=== PATIENT | male | born 1960 | race Caucasian/White ===

== ENCOUNTER 2017-02-03 19:30 | Emergency (ER) | payer OTHER ==
--- NOTE | 2017-02-03 19:40 | EDM.PDOC ---
ED HPI GENERAL MEDICAL PROBLEM - General Chief Complaint: Lower Extremity Injury/Pain Stated Complaint: RIGHT FOOT PAIN Time Seen by Provider: 02/03/17 19:38 Source of Information: Reports: Patient History Limitations: Reports: No Limitations - History of Present Illness INITIAL COMMENTS - FREE TEXT/NARRATIVE: HISTORY AND PHYSICAL: []56-year-old male presents with injury to his right foot History of Present Illness: []Patient was walking on uneven gravel otherwise twisted his ankle and foot causing increased pain. When patient got home after work he took his work boot off pain increased and bruising is starting to be present on the lateral surface Review of Systems: As per history of present illness and below otherwise all systems reviewed and negative. Past medical history: As per history of present illness and as reviewed below otherwise noncontributory. Surgical history: As per history of present illness and as reviewed below otherwise noncontributory. Social history: No reported history of drug or alcohol abuse. Family history: As per history of present illness and as reviewed below otherwise noncontributory. Physical exam: Alert and oriented gentleman who answers questions appropriately, in full sentences, good affect. HEENT: Atraumatic, normocehpalic, pupils reactive, negative for conjunctival pallor or scleral icterus, mucous membranes moist, throat clear, neck supple, nontender, trachea midline. Lungs: Clear to auscultation, breath sounds equal bilaterally, chest non tender. Heart: S1S2, regular, negative for clicks, rubs, or JVD. Abdomen: Soft, nondistended, nontender. Negative for masses or hepatossplenmegaly. Negative for costovertebral tenderness. Pelvis: Stable nontender. Genitourinary: Deferred. Rectal: Deferred Extremities: Right foot with erythema and lateral edema, right ankle with edema laterally, negative for cords or calf pain. Neurovascular unremarkable. Neuro: Awake, alert, oriented. Cranial nerves II through XII unremarkable. Cerebellum unremarkable. Motor and sensory unremarkable throughout. Exam nonfocal. Diagnostics: [X-ray right foot x-ray right ankle] Therapeutics: []Ice Impression: [Sprain right foot and ankle] Plan: []Home elevate and ice Note for work light duty 2 days Definitive disposition and diagnosis as appropriate pending reevaluation and review of above. right foot Pain Score (Numeric/FACES): 8 - Related Data Allergies Allergy/AdvReac Type Severity Reaction Status Date / Time No Known Allergies Allergy Verified 02/03/17 19:36 Home Meds: Home Meds metFORMIN HCl [Metformin HCl ER] 500 mg PO DAILY 12/22/13 [History] Dulaglutide [Trulicity] 1.5 mg SQ WEEKLY 02/03/17 [History] FLUoxetine [PROzac] 20 mg PO DAILY 02/03/17 [History] Social & Family History - Tobacco Use Years of Tobacco use: 38 Used Tobacco, but Quit: No Second Hand Smoke Exposure: No - Alcohol Use Days Per Week of Alcohol Use: 0 - Recreational Drug Use Recreational Drug Use: No Review of Systems - Review of Systems Review Of Systems: ROS reveals no pertinent complaints other than HPI. ED EXAM, GENERAL - Physical Exam Exam: See Below (see dictation) Course - Vital Signs Last Recorded V/S: Last Vital Signs Temp 36.6 C 02/03/17 19:40 Pulse 126 H 02/03/17 19:40 Resp 18 02/03/17 19:40 BP 131/90 02/03/17 19:40 Pulse Ox 96 02/03/17 19:40 - Orders/Labs/Meds Orders: Active Orders 24 hr Category Date Time Status Cooling Warming Measures [RC] ASDIRECTED Care 02/03/17 19:43 Active Splinting [RC] ASDIRECTED Care 02/03/17 20:32 Ordered Ankle Min 3V Rt [CR] Stat Exams 02/03/17 19:40 Taken Foot 2V Rt [CR] Stat Exams 02/03/17 19:40 Taken Ice Bag [Ice Therapy] [OM.PC] Stat Oth 02/03/17 19:43 Ordered Departure - Departure Time of Disposition: 20:34 Disposition: Home, Self-Care 01 Condition: Good Clinical Impression: Strain of ankle and foot Qualifiers: Encounter type: initial encounter Laterality: right Qualified Code(s): S96.911A - Strain of unspecified muscle and tendon at ankle and foot level, right foot, initial encounter - Discharge Information Instructions: Ankle Sprain, [id number] Forms: ED Department Discharge Additional Instructions: The following information is given to patients seen in the emergency department who are being discharged to home. This information is to outline your options for follow-up care. We provide all patients seen in our emergency department with a follow-up referral. The need for follow-up, as well as the timing and circumstances, are variable depending upon the specifics of your emergency department visit. If you don't have a primary care physician on staff, we will provide you with a referral. We always advise you to contact your personal physician following an emergency department visit to inform them of the circumstance of the visit and for follow-up with them and/or the need for any referrals to a consulting specialist. The emergency department will also refer you to a specialist when appropriate. This referral assures that you have the opportunity for followup care with a specialist. All of these measure are taken in an effort to provide you with optimal care, which includes your followup. Under all circumstances we always encourage you to contact your private physician who remains a resource for coordinating your care. When calling for followup care, please make the office aware that this follow-up is from your recent emergency room visit. If for any reason you are refused follow-up, please contact the [facility] emergency department at and asked to speak to the emergency department charge nurse. [id number] anti-inflammatory such as Aleve twice daily may alternate with Tylenol Elevate and ice currently Fran wrap to this ankle Light Duty note written for 2 days of work Follow-up with your primary care provider next week - My Orders Last 24 Hours: My Active Orders 02/03/17 19:40 Ankle Min 3V Rt [CR] Stat Foot 2V Rt [CR] Stat 02/03/17 19:43 Cooling Warming Measures [RC] ASDIRECTED Ice Bag [Ice Therapy] [OM.PC] Stat 02/03/17 20:32 Splinting [RC] ASDIRECTED - Assessment/Plan Last 24 Hours: My Active Orders 02/03/17 19:40 Ankle Min 3V Rt [CR] Stat Foot 2V Rt [CR] Stat 02/03/17 19:43 Cooling Warming Measures [RC] ASDIRECTED Ice Bag [Ice Therapy] [OM.PC] Stat 02/03/17 20:32 Splinting [RC] ASDIRECTED
[2017-02-03 21:32] VITALS: BP 118/83
--- NOTE | 2017-02-04 11:54 | CR ---
EXAM DATE: 02/03/17 PATIENT'S AGE: 56 Patient: KATJA ALEJANDRO Facility: [place], [place] Site . Site : 1960 Study: XRay Extremity foot [id number]/15/2017 8:03:24 PM Ordering Physician: Doctor Gallardo Final Report: INDICATION: Twisting injury, right foot. TECHNIQUE: Right foot, 2 images only. COMPARISON: None FINDINGS: Bones: Alignment is normal. No acute fractures or aggressive osseous lesions seen. Joint spaces: The visualized hindfoot, midfoot, and forefoot joints are unremarkable in appearance. Soft tissues: Unremarkable. No radiopaque foreign bodies are noted. IMPRESSION: 1. No acute osseous injuries are identified. Dictated by Narinder Cantu MD @ 02/03/2017 8:18:14 PM Dictated by: Narinder Cantu MD @ 02/03/2017 20:18:30 (Electronic Signature) Report Signed by Proxy. WILLIAMS
--- NOTE | 2017-02-04 11:55 | CR ---
EXAM DATE: 02/03/17 PATIENT'S AGE: 56 Patient: KATJA ALEJANDRO Facility: [place], [place] Site . Site : 1960 Study: XRay Extremity ankle [id number]/15/2017 8:03:47 PM Ordering Physician: Doctor Gallardo Final Report: INDICATION: Twisting injury, right ankle. TECHNIQUE: Ankle radiograph 3 views COMPARISON: None FINDINGS: Bones: Alignment is normal. No acute fractures or aggressive osseous lesions seen. Joint spaces: The visualized tibiotalar, subtalar, and midfoot joints are unremarkable in appearance. No joint effusion is seen. Soft tissues: Kager`s fat pad is normal in appearance. The Achilles` tendon is normal in appearance. No radiopaque foreign bodies are noted. IMPRESSION: 1. No acute osseous injuries are identified. Dictated by Narinder Cantu MD @ 02/03/2017 8:20:15 PM Dictated by: Narinder Cantu MD @ 02/03/2017 20:20:21 (Electronic Signature) Report Signed by Proxy. [facility] HE[facility] SYSTEMSukhi
== END 2017-02-03 20:45 | disposition home or self-care (01) ==
LOC: MW.ED 19:30
DX: S96.911A Strain of unspecified muscle and tendon at ankle and foot level, right foot, initial encounter (principal); S93.401A Sprain of unspecified ligament of right ankle, initial encounter; Z79.899 Other long term (current) drug therapy; X50.1XXA Overexertion from prolonged static or awkward postures, initial encounter; Y93.01 Activity, walking, marching and hiking
CPT/HCPCS: 73610-26-RT; 73610-RT; 73620-26-RT; 73620-RT; 99282; 99283

== ENCOUNTER 2017-12-21 06:31 | Day surgery (SDC) | payer OTHER ==
[~2017-12-21 06:31] MED LIST: Lactated Ringers 1,000 ML IV SCH
--- NOTE | 2017-12-21 07:13 | PCM.PREANE ---
Preanesthetic Assessment - Anesthesia/Transfusion/Family Hx Anesthesia History: Prior Anesthesia Without Reaction Family History of Anesthesia Reaction: No Transfusion History: No Prior Transfusion(s) Intubation History: Unknown - Review of Systems General: No Symptoms Pulmonary: No Symptoms Cardiovascular: No Symptoms Gastrointestinal: No Symptoms Neurological: No Symptoms Other: Reports: None - Physical Assessment O2 Sat by Pulse Oximetry: 94 Respiratory Rate: 16 Vital Signs: Last Vital Signs Temp 36.4 C 12/21/17 07:09 Pulse 85 12/21/17 07:09 Resp 16 12/21/17 07:09 BP 142/87 H 12/21/17 07:09 Pulse Ox 94 L 12/21/17 07:09 Height: 1.73 m Weight: 95.254 kg ASA Class: 2 Mental Status: Alert & Oriented x3 Airway Class: Mallampati = 2 Dentition: Reports: Normal Dentition Thyro-Mental Finger Breadths: 2 Mouth Opening Finger Breadths: 3 ROM/Head Extension: Full Lungs: Clear to Auscultation, Normal Respiratory Effort Cardiovascular: Regular Rate, Regular Rhythm - Allergies Allergies/Adverse Reactions: Allergies Allergy/AdvReac Type Severity Reaction Status Date / Time No Known Allergies Allergy Verified 12/16/17 12:25 - Blood Blood Available: No - Anesthesia Plan Pre-Op Medication Ordered: None - Acknowledgements Anesthesia Type Planned: General Anesthesia Pt an Appropriate Candidate for the Planned Anesthesia: Yes Alternatives and Risks of Anesthesia Discussed w Pt/Guardian: Yes Pt/Guardian Understands and Agrees with Anesthesia Plan: Yes PreAnesthesia Questionnaire HEENT History: Reports: None, Other (See Below) Other HEENT History: wears glasses Cardiovascular History: Reports: High Cholesterol Respiratory History: Reports: None Gastrointestinal History: Reports: None Genitourinary History: Reports: None Musculoskeletal History: Reports: Fracture Other Musculoskeletal History: hx fx rt ankle Neurological History: Reports: None Psychiatric History: Reports: Anxiety, Depression Endocrine/Metabolic History: Reports: Diabetes, Type II (diagnosed 3 years ago) , Obesity/BMI 30+ Hematologic History: Reports: None Dermatologic History: Reports: None - Infectious Disease History Infectious Disease History: Reports: Chicken Pox, Mumps - Past Surgical History Head Surgeries/Procedures: Reports: None Other GI Surgeries/Procedures: hemorrhoidectomy Male Surgical History: Reports: None - SUBSTANCE USE Smoking Status *Q: Former Smoker Recreational Drug Use History: No - HOME MEDS Home Medications: Home Meds metFORMIN HCl [Metformin HCl ER] 1,000 mg PO BID 12/22/13 [History] Creatinine 5 gm PO DAILY 12/16/17 [History] Multivitamin [Multivitamins] 1 tab PO DAILY 12/16/17 [History] [place]-3/DHA/Epa/Fish Oil [Fish Oil 500 MG Softgel] 1 tab PO DAILY 12/16/17 [ History] Saxagliptin HCl [Onglyza] 5 mg PO DAILY 12/16/17 [History] Venlafaxine HCl [Venlafaxine HCl ER] 225 mg PO DAILY 12/16/17 [History] atorvaSTATin Calcium [Atorvastatin Calcium] 40 mg PO DAILY 12/16/17 [History] - CURRENT (IN HOUSE) MEDS Current Meds: Current Medications Hydrocodone Bitart/Acetaminophen (Rapidan 325-5 Mg) 1 - 2 tab PO Q4H PRN PRN Reason: Pain Cefazolin Sodium/Dextrose 2 gm (/ Premix) 50 mls @ 100 mls/hr IV ONCALL [facility] Lactated Ringer's (Ringers, Lactated) 1,000 mls @ 100 mls/hr IV ASDIRECTED [facility]
[2017-12-21] MEDS ORDERED: Midazolam 1 MG/ML 2 ML SDV ONE (07:22)
[2017-12-21] MEDS ORDERED: Propofol 200 MG/20 ML SDV ONE (07:22)
[2017-12-21] MEDS ORDERED: Lidocaine 2% 5 ML SDV ONE (07:22)
[2017-12-21] MEDS ORDERED: fentaNYL 250 MCG/5 ML SDV ONE (07:23)
[2017-12-21] MEDS ORDERED: ceFAZolin/Dextrose,Iso-Osmotic 2 GM/50 ML Duplex Bag IV ONE (07:29)
[2017-12-21] MEDS ORDERED: Lidocaine 1% 20 ML MDV ONE (07:34)
[2017-12-21] MEDS ORDERED: Acetaminophen/HYDROcodone 325-5 MG Tab PO PRN (08:00)
[2017-12-21] MEDS ORDERED: ceFAZolin 2 GM in Premix Bag 1 BAG IV SCH (08:00)
--- NOTE | 2017-12-21 08:46 | PCM.OPNOTE ---
- General Post-Op/Procedure Note Date of Surgery/Procedure: 12/21/17 Operative Procedure(s): L knee arthroscopy with PMM Post-Op Diagnosis: L knee DJD, left knee medial meniscus tear Anesthesia Technique: General LMA Primary Surgeon: Ewelina Velez Labourers: Tonie Clark in mLs: 5 Condition: Good Free Text/Narrative:: tt=14 min #[id number]
[2017-12-21] MEDS ORDERED: fentaNYL 100 MCG/2 ML SDV IVPUSH PRN (08:57)
--- NOTE | 2017-12-21 09:16 | PCM.POSTAN ---
POST ANESTHESIA ASSESSMENT - MENTAL STATUS Mental Status: Alert - RESPIRATORY Respiratory Status: Respiratory Rate WNL - CARDIOVASCULAR CV Status: Pulse Rate WNL, Blood Pressure Stable - GASTROINTESTINAL GI Status: No Symptoms - PAIN Pain Score: 0 - POST OP HYDRATION Hydration Status: Adequate & Stable - OBSERVATIONS Free Text/Narrative:: no anesthesia problems
[2017-12-21 09:51] VITALS: BP 128/74
--- NOTE | 2017-12-21 12:56 | OR ---
SURGEON: Ewelina Velez MD DATE OF PROCEDURE: 12/21/2017 PREOPERATIVE DIAGNOSIS: Left knee medial meniscus tear. POSTOPERATIVE DIAGNOSES: 1. Left knee medial meniscus tear. 2. Degenerative joint disease, left knee. PROCEDURES: Left knee arthroscopy with partial medial meniscectomy. STEM SIZER: Tonie Clark PA-C. ANESTHESIA: General. ESTIMATED BLOOD LOSS: 5 mL. TOURNIQUET TIME: 14 minutes. COMPLICATIONS: None. DVT PROPHYLAXIS: Not indicated. IMPLANTS USED: None. BRIEF HISTORY: Haseeb is a 57-year-old male, who has had complaint of progressive left knee pain. He had failed conservative treatment. An MRI did show an undersurface tear of the medial meniscus. Due to his lack of response to conservative treatment, I did recommend surgical intervention. The risks and goals of procedure were discussed with the patient and were documented preoperatively. He agreed to proceed. DESCRIPTION OF PROCEDURE: The patient was properly identified and brought to the operating room. He was transferred from the OR cart and placed on the operating table in supine position. General anesthesia was administered. After adequate anesthesia was obtained, a well-padded tourniquet was applied to the left lower extremity. The left lower extremity was then prepped in standard fashion using ChloraPrep solution. It was then sterilely draped. A time-out was performed to ensure correct site and procedure. Preoperative antibiotics were given. The surgical site had been marked preoperatively. An Esmarch was used to exsanguinate the left lower extremity and the tourniquet was inflated to 250 mmHg. A lateral portal arthrotomy was established. Blunt trocar and cannula were introduced into the suprapatellar pouch. Camera, inflow, and outflow were assembled. The suprapatellar pouch showed no signs of synovitis. The patellofemoral joint was visualized. 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 The trochlea showed no significant degenerative findings. The patella appeared to track centrally. I then extended down the lateral medial gutter. No loose bodies were identified. I then entered the medial compartment. A medial portal arthrotomy was established. A blunt probe was inserted. The meniscus was probed. He was found to have degenerative fraying along the central portion of the meniscus. This was resected with a combination of biters and shaver. The meniscus was again probed and was found to be stable. No undersurface tearing was noted. The joint surfaces showed diffuse grade 2 chondromalacia only. I then entered the notch. Both ACL and PCL were visualized, probed, and found to be intact. I finally entered the lateral compartment. The lateral tibial plateau did show extensive grade 2 to grade 3 chondromalacia, which was diffuse. No discrete lesions were noted. The lateral femoral condyle showed grade 1 to grade 2 chondromalacia only. The lateral meniscus was extensively probed. He had minor degenerative fraying along the central portion, but overall the meniscus was intact and appeared stable. The instruments were then removed from the knee. The portal sites were closed with 3-0 nylon. 1% Lidocaine was injected along the portal tracts. Xeroform gauze was placed over the wound and a bulky dressing was applied. The tourniquet was then deflated. He was awakened from his anesthetic and transferred back to the operating room cart. He was brought to recovery room in stable condition. All needle and sponge counts were correct. COURTNEY / JERALD /[id number]
== END 2017-12-21 09:54 | disposition home or self-care (01) ==
LOC: MW.SDS 06:31
PROVIDERS: ATTEND Orthopaedic Surgery
DX: S83.242A Other tear of medial meniscus, current injury, left knee, initial encounter (principal); M17.12 Unilateral primary osteoarthritis, left knee; M94.262 Chondromalacia, left knee; E11.9 Type 2 diabetes mellitus without complications; E78.00 Pure hypercholesterolemia, unspecified; F41.9 Anxiety disorder, unspecified; F32.9 Major depressive disorder, single episode, unspecified; E66.9 Obesity, unspecified; Z68.31 Body mass index [BMI] 31.0-31.9, adult; Z87.891 Personal history of nicotine dependence; Z79.4 Long term (current) use of insulin; Z79.82 Long term (current) use of aspirin; Z79.899 Other long term (current) drug therapy; W00.9XXA Unspecified fall due to ice and snow, initial encounter
CPT/HCPCS: 29881; J0690; J2250; J3010; J7120; 88304; J2704

== ENCOUNTER 2018-07-02 00:23 | Emergency (ER) | payer OTHER ==
[2018-07-02] MEDS ORDERED: Acetaminophen/HYDROcodone 325-7.5 MG Tab PO ONE (00:46)
--- NOTE | 2018-07-02 00:52 | EDM.PDOC ---
ED HPI GENERAL MEDICAL PROBLEM - General Chief Complaint: Chest Pain Stated Complaint: FELL AT WORK A WEEK AGO, IN PAIN Time Seen by Provider: 07/02/18 00:35 - History of Present Illness INITIAL COMMENTS - FREE TEXT/NARRATIVE: HISTORY AND PHYSICAL: History of present illness: The patient is a 57-year-old male with no pre-existing cardiac or lung history who presents with bilateral chest wall pain after he fell onto a 4 left approximate one week ago while at work. Patient was not impaled but didn't follow across the metal forklift and initially had the wind knocked out of him but he did not pass out or blackout. He did not hit his face or legs but he did put out both wrists and he still complains of persistent left wrist discomfort. He says that he has never had any abdominal pain nausea or vomiting and he has only had pain across the anterior chest wall. He has no head neck or back pain and no posterior rib pain on either side. He says that he takes a deep breath it is very painful and he's been using ibuprofen [id number] but does not feel like it is helping him relax. He has not had much of an appetite but he has been hydrating. The patient says he quit smoking and was tobacco free for 3 years but just recently started about a month ago. The patient has no other upper extremity complaints other than the wrists. The patient doesn't feel lightheaded or dizzy Review of systems: As per history of present illness and below otherwise all systems reviewed and negative. Past medical history: As per history of present illness and as reviewed below otherwise noncontributory. Surgical history: As per history of present illness and as reviewed below otherwise noncontributory. Social history: No reported history of drug or alcohol abuse. Family history: As per history of present illness and as reviewed below otherwise noncontributory. Physical exam: General: Well-developed well-nourished man speaking clearly and easily in the ED seems somewhat anxious. His vital signs were noted by me HEENT: Atraumatic, normocephalic, negative for conjunctival pallor or scleral icterus, mucous membranes moist, throat clear, neck supple, nontender, trachea midline. Lungs: Clear to auscultation but there is good air exchange bilaterally but some splinting with very deep breaths, there is no wheezing or stridor, breath sounds equal bilaterally, chest tender to the anterior chest wall in the lower anterior ribs bilaterally but no posterior rib discomfort or sternum tenderness. There is no ecchymosis contusion or soft tissue swelling in this region and no crepitus on palpation. Heart: S1S2, regular rhythm and tachycardic rate on my evaluation but no overt murmurs Abdomen: Soft, nondistended, nontender. Bowel sounds are normoactive and on deep palpation in the left upper and right upper quadrant there is absolutely no tenderness. There is no hepatosplenomegaly and no CVA tenderness. Genitourinary: Deferred. Rectal: Deferred. Extremities: Atraumatic, full range of motion without defects or deficits the exception of the left wrist where there is some tenderness with palpation of the soft tissue but no bony deformities are appreciated and there is no ecchymosis erythema. Distally neurovascular is intact and there are no carpal or metacarpal defects deformities or tenderness and the fingers have full range of motion. The proximal forearm elbow humerus and shoulder on the left are intact without tenderness defects or deformity. Neurovascular unremarkable. Neuro: Awake, alert, oriented. Cranial nerves II through XII unremarkable. Cerebellum unremarkable. Motor and sensory unremarkable throughout. Exam nonfocal. Diagnostics: X-ray left wrist bilateral rib x-rays with chest CBC CMP Therapeutics: [place] incentive spirometer Patient is aware of testing results which include anterior nondisplaced rib fractures on the right side of 7 and eighth ribs. We will given incentive spirometer and I will admit him and no work for no heavy lifting for the next one week but have advised him to follow-up with his provider in the clinic for more restrictions. Advised [id number] ibuprofen as he has been taking and I will give a prescription for Percocet as needed Impression: Right nondisplaced rib fractures #7 and 8, subacute Definitive disposition and diagnosis as appropriate pending reevaluation and review of above. Chest Pain Score (Numeric/FACES): 8 - Related Data Allergies Allergy/AdvReac Type Severity Reaction Status Date / Time No Known Allergies Allergy Verified 07/02/18 00:39 Home Meds: Home Meds metFORMIN HCl [Metformin ER Osmotic] 1,000 mg PO BID 12/22/13 [History] Multivitamin [Multivitamins] 1 tab PO DAILY 12/16/17 [History] Saxagliptin HCl [Onglyza] 5 mg PO DAILY 12/16/17 [History] atorvaSTATin Calcium [Atorvastatin Calcium] 40 mg PO DAILY 12/16/17 [History] Past Medical History HEENT History: Reports: None, Other (See Below) Other HEENT History: wears glasses Cardiovascular History: Reports: High Cholesterol Respiratory History: Reports: None Gastrointestinal History: Reports: None Genitourinary History: Reports: None Musculoskeletal History: Reports: Fracture Other Musculoskeletal History: hx fx rt ankle Neurological History: Reports: None Psychiatric History: Reports: Anxiety, Depression Endocrine/Metabolic History: Reports: Diabetes, Type II, Obesity/BMI 30+ Hematologic History: Reports: None Dermatologic History: Reports: None - Infectious Disease History Infectious Disease History: Reports: Chicken Pox, Mumps - Past Surgical History Head Surgeries/Procedures: Reports: None GI Surgical History: Reports: Other (See Below) Other GI Surgeries/Procedures: hemorrhoidectomy Male Surgical History: Reports: None Social & Family History - Family History Family Medical History: Noncontributory - Tobacco Use Smoking Status *Q: Current Every Day Smoker Years of Tobacco use: 42 Packs/Tins Daily: 1 - Caffeine Use Caffeine Use: Reports: Coffee - Recreational Drug Use Recreational Drug Use: No ED ROS GENERAL - Review of Systems Review Of Systems: ROS reveals no pertinent complaints other than HPI. ED EXAM, GENERAL - Physical Exam Exam: See Below (see dictation) Course - Vital Signs Last Recorded V/S: Last Vital Signs Temp 36.5 C 07/02/18 00:36 Pulse 128 H 07/02/18 00:36 Resp 20 07/02/18 00:36 BP 130/83 07/02/18 00:36 Pulse Ox 97 07/02/18 00:36 - Orders/Labs/Meds Orders: Active Orders 24 hr Category Date Time Status Communication Order [RC] STAT Care 07/02/18 02:21 Ordered Ribs 2V w Chest Rt [CR] Stat Exams 07/02/18 00:45 Taken Ribs 2V wo Chest Lt [CR] Stat Exams 07/02/18 00:45 Taken Wrist Comp Min 3V Lt [CR] Stat Exams 07/02/18 00:45 Taken Labs: Laboratory Tests 07/02/18 07/02/18 Range/Units 01:06 01:06 WBC 12.15 H (4.0-11.0) K/uL RBC 5.27 (4.50-5.90) M/uL Hgb 16.0 (13.0-17.0) g/dL Hct 46.6 (38.0-50.0) % MCV 88.4 (80.0-98.0) fL MCH 30.4 (27.0-32.0) pg MCHC 34.3 (31.0-37.0) g/dL RDW Std Deviation 41.0 (28.0-62.0) fl RDW Coeff of Yari 13 (11.0-15.0) % Plt Count 298 (150-400) K/uL MPV 10.00 (7.40-12.00) fL Neut % (Auto) 65.1 (48.0-80.0) % Lymph % (Auto) 16.5 (16.0-40.0) % [place] % (Auto) 11.0 (0.0-15.0) % Eos % (Auto) 7.2 H (0.0-7.0) % Baso % (Auto) 0.2 (0.0-1.5) % Neut # (Auto) 7.9 H (1.4-5.7) K/uL Lymph # (Auto) 2.0 (0.6-2.4) K/uL [place] # (Auto) 1.3 H (0.0-0.8) K/uL Eos # (Auto) 0.9 H (0.0-0.7) K/uL Baso # (Auto) 0.0 (0.0-0.1) K/uL Nucleated RBC % 0.0 /100WBC Nucleated RBCs # 0 K/uL Sodium 140 (136-148) mmol/L Potassium 4.0 (3.5-5.1) mmol/L Chloride 103 (98-107) mmol/L Carbon Dioxide 24.3 (21.0-32.0) mmol/L BUN 15 (7.0-18.0) mg/dL Creatinine 0.9 (0.8-1.3) mg/dL Est Cr Clr Drug Dosing 87.61 mL/min Estimated GFR (MDRD) > 60.0 ml/min Glucose 225 H (74-106) mg/dL Calcium 10.2 H (8.5-10.1) mg/dL Total Bilirubin 1.1 H (0.2-1.0) mg/dL AST 30 (15-37) IU/L ALT 60 (14-63) IU/L Alkaline Phosphatase 82 (46-116) U/L Total Protein 8.2 (6.4-8.2) g/dL Albumin 3.9 (3.4-5.0) g/dL Globulin 4.3 H (2.6-4.0) g/dL Albumin/Globulin Ratio 0.9 (0.9-1.6) Meds: Medications Discontinued Medications Generic Name Dose Route Start Last Admin Trade Name Freq PRN Reason Stop Dose Admin Hydrocodone Bitart/Acetaminophen 1 tab 07/02/18 00:46 07/02/18 00:51 [place] 325-7.5 Mg PO 07/02/18 00:47 1 tab ONETIME ONE Administration Departure - Departure Time of Disposition: 02:23 Disposition: Home, Self-Care 01 Condition: Good Clinical Impression: Ribs, multiple fractures Qualifiers: Encounter type: initial encounter Fracture type: closed Laterality: right Qualified Code(s): S22.41XA - Multiple fractures of ribs, right side, initial encounter for closed fracture - Discharge Information Referrals: Negrito Jordan MD [Primary Care Provider] - Forms: ED Department Discharge Additional Instructions: The following information is given to patients seen in the emergency department who are being discharged to home. This information is to outline your options for follow-up care. We provide all patients seen in our emergency department with a follow-up referral. The need for follow-up, as well as the timing and circumstances, are variable depending upon the specifics of your emergency department visit. If you don't have a primary care physician on staff, we will provide you with a referral. We always advise you to contact your personal physician following an emergency department visit to inform them of the circumstance of the visit and for follow-up with them and/or the need for any referrals to a consulting specialist. The emergency department will also refer you to a specialist when appropriate. This referral assures that you have the opportunity for followup care with a specialist. All of these measure are taken in an effort to provide you with optimal care, which includes your followup. Under all circumstances we always encourage you to contact your private physician who remains a resource for coordinating your care. When calling for followup care, please make the office aware that this follow-up is from your recent emergency room visit. If for any reason you are refused follow-up, please contact the [facility] emergency department at and ask to speak to the emergency department charge nurse. [facility] Primary care- Internal Medicine and Family [facility] [address] [place] [id number] [place] [address] Use [id number] ibuprofen for the daytime and when you're at home he may take the stronger pain medication, Percocet, as needed. Use the incentive spirometer to keep her lungs open and try to do all activities more slowly as we discussed. Return to ER as needed and as discussed - My Orders Last 24 Hours: My Active Orders 07/02/18 00:45 Ribs 2V w Chest Rt [CR] Stat Ribs 2V wo Chest Lt [CR] Stat Wrist Comp Min 3V Lt [CR] Stat 07/02/18 02:21 Communication Order [RC] STAT - Assessment/Plan Last 24 Hours: My Active Orders 07/02/18 00:45 Ribs 2V w Chest Rt [CR] Stat Ribs 2V wo Chest Lt [CR] Stat Wrist Comp Min 3V Lt [CR] Stat 07/02/18 02:21 Communication Order [RC] STAT
[2018-07-02 01:32] LABS: CHLORIDE,CL 103 mmol/L (98-107); SODIUM,NA 140 mmol/L (136-148)
[2018-07-02 02:51] VITALS: BP 119/81
--- NOTE | 2018-07-02 19:09 | CR ---
EXAM DATE: 07/02/18 PATIENT'S AGE: 57 Patient: KATJA ALEJANDRO Facility: [place], [place] Site . Site : 1960 Study: XRay Extremity Left wrist [id number]/11/2019 1:59:21 AM Ordering Physician: Jerad Carey Final Report: INDICATION: Wrist injury from trauma, fall 1 week ago TECHNIQUE: Wrist radiograph 3 views left COMPARISON: None FINDINGS: Bone: No acute fractures or aggressive bone lesions are identified. Joint: The radiocarpal, carpal, and carpometacarpal joints are unremarkable in appearance. Soft tissue: Unremarkable. No radiopaque foreign bodies are seen. IMPRESSION: 1. No acute osseous injuries or abnormalities are noted. Dictated by: Pankaj Gutiérrez MD @ 07/02/2018 02:05:28 (Electronic Signature) Report Signed by Proxy. WILLIAMS
--- NOTE | 2018-07-02 19:10 | CR ---
EXAM DATE: 07/02/18 PATIENT'S AGE: 57 Patient: KATJA ALEJANDRO Facility: [place], [place] Site . Site : 1960 Study: XRay Chest Left RIBS [id number]/11/2019 2:00:26 AM Ordering Physician: Jerad Carey Final Report: INDICATION: Chest wall injury from trauma, fall 1 week ago TECHNIQUE: Rib radiograph 4 views left COMPARISON: None FINDINGS: Moderate degradation of image quality noted due to body habitus. Bone: No definite acute rib fractures are identified in the visualized ribs. The remaining osseous structures are unremarkable for age. Lung: Both lungs are unremarkable in appearance. No sign of pleural effusion seen. No pneumothorax is identified. IMPRESSION: 1. No acute osseous injuries or abnormalities seen. Dictated by: Pankaj Gutiérrez MD @ 07/02/2018 02:08:36 (Electronic Signature) Report Signed by Proxy. WILLIAMS
--- NOTE | 2018-07-02 19:11 | CR ---
EXAM DATE: 07/02/18 PATIENT'S AGE: 57 Patient: KATJA ALEJANDRO Facility: [place], [place] Site . Site : 1960 Study: XRay Extremity Right Ribs/Chest [id number]/11/2019 2:01:06 AM Ordering Physician: Jerad Carey Final Report: INDICATION: Rib injury from trauma, fall 1 week ago TECHNIQUE: Rib radiograph 5 views right COMPARISON: None FINDINGS: Bone: Nondisplaced fractures of the right anterior 7th and 8th ribs are noted. The remaining osseous structures are unremarkable for age. Lung: Both lungs are unremarkable in appearance. No sign of pleural effusion seen. No pneumothorax is identified. IMPRESSION: 1. Nondisplaced fractures of the right anterior 7th and 8th ribs are noted. Dictated by Pankaj Gutiérrez MD @ 07/02/2018 2:10:39 AM Dictated by: Pankaj Gutiérrez MD @ 07/02/2018 02:10:43 (Electronic Signature) Report Signed by Proxy. WILLIAMS
== END 2018-07-02 02:48 | disposition home or self-care (01) ==
LOC: MW.ED 00:23
DX: S22.41XA Multiple fractures of ribs, right side, initial encounter for closed fracture (principal); E11.9 Type 2 diabetes mellitus without complications; E78.00 Pure hypercholesterolemia, unspecified; Z79.84 Long term (current) use of oral hypoglycemic drugs; Z79.899 Other long term (current) drug therapy; Y99.0 Civilian activity done for income or pay; W18.09XA Striking against other object with subsequent fall, initial encounter; Z87.891 Personal history of nicotine dependence
CPT/HCPCS: 36415; 71100; 71101; 73110; 80053; 85025; 99285; A9270

== ENCOUNTER 2019-10-25 10:06 | Emergency (ER) | payer OTHER ==
[2019-10-25] MEDS ORDERED: Sodium Chloride 0.9% 10 ML Syringe FLUSH PRN (10:22)
[2019-10-25] MEDS ORDERED: Sodium Chloride 0.9% 1,000 ML IV ONE (10:22)
[2019-10-25] MEDS ORDERED: Ondansetron 4 MG/2 ML SDV IVPUSH ONE (10:22)
[2019-10-25] MEDS ORDERED: Sodium Chloride 0.9% 2.5 ML Syringe FLUSH PRN ×2 (10:22)
[2019-10-25] MEDS ORDERED: Morphine 4 MG/ML Syringe IVPUSH PRN (10:23)
--- NOTE | 2019-10-25 10:31 | EDM.PDOC ---
ED HPI GENERAL MEDICAL PROBLEM - General Chief Complaint: Abdominal Pain Stated Complaint: ADBOMINAL PAIN LT SIDE Time Seen by Provider: 10/25/19 10:15 - History of Present Illness INITIAL COMMENTS - FREE TEXT/NARRATIVE: History of present illness: patient presents with left lower quadrant abdominal pain for 2 weeks. The pain waxes and wanes it is worse in the morning worse when he is laying supine and seems to get better as the day progresses no nausea or vomiting no diarrhea no blood in his stools no fever chills no prior surgeries on his abdomen. He has not had this pain before Tylenol seems to help it but does not alleviate the pain completely Review of systems: As per history of present illness and below otherwise all systems reviewed and negative. Past medical history: As per history of present illness and as reviewed below otherwise noncontributory. Surgical history: As per history of present illness and as reviewed below otherwise noncontributory. Social history: No reported history of drug or alcohol abuse. Family history: As per history of present illness and as reviewed below otherwise noncontributory. Physical exam: HEENT: Atraumatic, normocephalic, pupils reactive, negative for conjunctival pallor or scleral icterus, mucous membranes moist, throat clear, neck supple, nontender, trachea midline. Lungs: Clear to auscultation, breath sounds equal bilaterally, chest nontender. Heart: S1S2, regular, negative for clicks, rubs, or JVD. Abdomen: Soft, nondistended, mild left lower quadrant pain. Negative for masses or hepatosplenomegaly. Negative for costovertebral tenderness. Pelvis: Stable nontender. Genitourinary: Deferred. Rectal: Deferred. Extremities: Atraumatic, negative for cords or calf pain. Neurovascular unremarkable. Neuro: Awake, alert, oriented. Cranial nerves II through XII unremarkable. Cerebellum unremarkable. Motor and sensory unremarkable throughout. Exam nonfocal. Diagnostics: [] Therapeutics: [] Impression: [] Plan: Patient will be given morphine and Zofran for pain fluid bolus labs will be obtained a CT will be obtained and he will be reassessed [] Definitive disposition and diagnosis as appropriate pending reevaluation and review of above. Left Lower Abd Pain Score (Numeric/FACES): 7 - Related Data Allergies Allergy/AdvReac Type Severity Reaction Status Date / Time No Known Allergies Allergy Verified 10/25/19 10:21 Home Meds: Home Meds metFORMIN HCl [Metformin ER Osmotic] 1,000 mg PO BID 12/22/13 [History] Multivitamin [Multivitamins] 1 tab PO DAILY 12/16/17 [History] Saxagliptin HCl [Onglyza] 5 mg PO DAILY 12/16/17 [History] atorvaSTATin Calcium [Atorvastatin Calcium] 40 mg PO DAILY 12/16/17 [History] Aspirin 81 mg PO DAILY 10/25/19 [History] Dicyclomine [Bentyl] 20 mg PO QIDACANDBED #30 tab 10/25/19 [Rx] Insulin Aspart [NovoLOG] 25 units SQ DAILY 10/25/19 [History] Naproxen [EC-Naproxen] 500 mg PO Q12HR #20 tablet. 10/25/19 [Rx] Venlafaxine [Effexor XR] 3 cap PO DAILY 10/25/19 [History] Past Medical History HEENT History: Reports: None, Other (See Below) Other HEENT History: wears glasses Cardiovascular History: Reports: High Cholesterol Respiratory History: Reports: None Gastrointestinal History: Reports: None Genitourinary History: Reports: None Musculoskeletal History: Reports: Arthritis, Fracture Other Musculoskeletal History: hx fx rt ankle. Left knee meniscus repair Neurological History: Reports: None Psychiatric History: Reports: Anxiety, Depression Endocrine/Metabolic History: Reports: Diabetes, Type II, Obesity/BMI 30+ Hematologic History: Reports: None Dermatologic History: Reports: None Other Dermatologic History: Current rash on left side of neck for couple months. - Infectious Disease History Infectious Disease History: Reports: Chicken Pox, Mumps - Past Surgical History Head Surgeries/Procedures: Reports: None GI Surgical History: Reports: Other (See Below) Other GI Surgeries/Procedures: hemorrhoidectomy Male Surgical History: Reports: None Social & Family History - Family History Family Medical History: Noncontributory - Tobacco Use Smoking Status *Q: Current Every Day Smoker Years of Tobacco use: 35 Packs/Tins Daily: 1 - Caffeine Use Caffeine Use: Reports: Coffee - Recreational Drug Use Recreational Drug Use: No ED ROS GENERAL - Review of Systems Review Of Systems: See Below ED EXAM, GENERAL - Physical Exam Exam: See Below Course - Vital Signs Text/Narrative:: At 1330 the patient was reexamined there is a tender spot on the abdominal wall on the left lateral side that seems to be the epicenter of his pain there is no pain to deep palpation he is able to hop up and down without pain. She does not demonstrate acute abdominal process no evidence of hernias. Patient be discharged home with son and Shawn he is to follow-up with primary care. Last Recorded V/S: Last Vital Signs Temp 35.8 C L 10/25/19 10:18 Pulse 121 H 10/25/19 10:18 Resp 18 10/25/19 10:18 BP 110/88 10/25/19 10:18 Pulse Ox 95 10/25/19 10:18 - Orders/Labs/Meds Orders: Active Orders 24 hr Category Date Time Status Morphine Med 10/25/19 10:23 Active 4 mg IVPUSH Q2H PRN Sodium Chloride 0.9% [Saline Flush] Med 10/25/19 10:22 Active 10 ml FLUSH ASDIRECTED PRN Sodium Chloride 0.9% [Saline Flush] Med 10/25/19 10:22 Active 2.5 ml FLUSH ASDIRECTED PRN Sodium Chloride 0.9% [Saline Flush] Med 10/25/19 10:22 Active 2.5 ml FLUSH ASDIRECTED PRN Saline Lock Insert [OM.PC] Stat Oth 10/25/19 10:22 Ordered Medication Orders Morphine Sulfate (Morphine) 4 mg IVPUSH Q2H PRN PRN Reason: Pain Last Admin: 10/25/19 10:39 Dose: 4 mg Sodium Chloride (Saline Flush) 2.5 ml FLUSH ASDIRECTED PRN PRN Reason: Keep Vein Open Sodium Chloride (Saline Flush) 10 ml FLUSH ASDIRECTED PRN PRN Reason: Keep Vein Open Sodium Chloride (Saline Flush) 2.5 ml FLUSH ASDIRECTED PRN PRN Reason: Keep Vein Open Labs: Laboratory Tests 10/25/19 10/25/19 10/25/19 Range/Units 10:42 11:04 12:46 WBC 14.94 H (4.0-11.0) K/uL RBC 5.51 (4.50-5.90) M/uL Hgb 16.7 (13.0-17.0) g/dL Hct 48.8 (38.0-50.0) % MCV 88.6 (80.0-98.0) fL MCH 30.3 (27.0-32.0) pg MCHC 34.2 (31.0-37.0) g/dL RDW Std Deviation 38.9 (28.0-62.0) fl RDW Coeff of Yari 12 (11.0-15.0) % Plt Count 199 (150-400) K/uL MPV 10.90 (7.40-12.00) fL Neut % (Auto) 74.5 (48.0-80.0) % Lymph % (Auto) 13.8 L (16.0-40.0) % [place]ancey % (Auto) 9.0 (0.0-15.0) % Eos % (Auto) 2.5 (0.0-7.0) % Baso % (Auto) 0.2 (0.0-1.5) % Neut # (Auto) 11.1 H (1.4-5.7) K/uL Lymph # (Auto) 2.1 (0.6-2.4) K/uL Yancey # (Auto) 1.4 H (0.0-0.8) K/uL Eos # (Auto) 0.4 (0.0-0.7) K/uL Baso # (Auto) 0.0 (0.0-0.1) K/uL Nucleated RBC % 0.0 /100WBC Nucleated RBCs # 0 K/uL Sodium 139 (136-148) mmol/L Potassium 5.1 (3.5-5.1) mmol/L Chloride 102 (98-107) mmol/L Carbon Dioxide 28.5 (21.0-32.0) mmol/L BUN 14 (7.0-18.0) mg/dL Creatinine 0.9 (0.8-1.3) mg/dL Est Cr Clr Drug Dosing 85.50 mL/min Estimated GFR (MDRD) > 60.0 ml/min Glucose 143 H (74-106) mg/dL Calcium 9.3 (8.5-10.1) mg/dL Total Bilirubin 0.9 (0.2-1.0) mg/dL AST 26 (15-37) IU/L ALT 58 (14-63) IU/L Alkaline Phosphatase 55 (46-116) U/L Total Protein 7.9 (6.4-8.2) g/dL Albumin 4.3 (3.4-5.0) g/dL Globulin 3.6 (2.6-4.0) g/dL Albumin/Globulin Ratio 1.2 (0.9-1.6) Lipase 87 (73-393) U/L Urine Color YELLOW Urine Appearance CLEAR Urine pH 5.0 (5.0-8.0) Ur Specific [place] 1.015 (1.001-1.035) Urine Protein NEGATIVE (NEGATIVE) mg/dL Urine Glucose (UA) NEGATIVE (NEGATIVE) mg/dL Urine Ketones NEGATIVE (NEGATIVE) mg/dL Urine Occult Blood NEGATIVE (NEGATIVE) Urine Nitrite NEGATIVE (NEGATIVE) Urine Bilirubin NEGATIVE (NEGATIVE) Urine Urobilinogen 0.2 (<2.0) EU/dL Ur Leukocyte Esterase NEGATIVE (NEGATIVE) Urine RBC 0-3 (0-2/HPF) Urine WBC 0-3 (0-5/HPF) Ur Epithelial Cells RARE (NONE-FEW) Urine Bacteria RARE (NEGATIVE) Meds: Medications Generic Name Dose Route Start Last Admin Trade Name Juma PRN Reason Stop Dose Admin Morphine Sulfate 4 mg 10/25/19 10:23 10/25/19 10:39 Morphine IVPUSH 4 mg Q2H PRN Administration Pain Sodium Chloride 2.5 ml 10/25/19 10:22 Saline Flush FLUSH ASDIRECTED PRN Keep Vein Open Sodium Chloride 10 ml 10/25/19 10:22 Saline Flush FLUSH ASDIRECTED PRN Keep Vein Open Sodium Chloride 2.5 ml 10/25/19 10:22 Saline Flush FLUSH ASDIRECTED PRN Keep Vein Open Discontinued Medications Generic Name Dose Route Start Last Admin Trade Name Juma PRN Reason Stop Dose Admin Sodium Chloride 1,000 mls @ 999 mls/hr 10/25/19 10:22 10/25/19 10:39 Normal Saline IV 10/25/19 11:22 999 mls/hr BOLUS ONE Administration Iopamidol 100 ml 10/25/19 12:03 10/25/19 12:04 [id number] (76%) IVPUSH 10/25/19 12:04 100 ml ONETIME STA Administration Ketorolac Tromethamine 30 mg 10/25/19 13:22 10/25/19 13:42 Toradol IVPUSH 10/25/19 13:23 30 mg ONETIME ONE Administration Ondansetron HCl 4 mg 10/25/19 10:22 10/25/19 10:39 Zofran IVPUSH 10/25/19 10:23 4 mg ONETIME ONE Administration - Radiology Interpretation Free Text/Narrative:: CT abdomen and pelvis was read by radiology as negative for acute intra- abdominal process Departure - Departure Time of Disposition: 13:45 Disposition: Home, Self-Care 01 Condition: Good Clinical Impression: Abdominal pain Qualifiers: Abdominal location: unspecified location Qualified Code(s): R10.9 - Unspecified abdominal pain - Discharge Information *PRESCRIPTION DRUG MONITORING PROGRAM REVIEWED*: Not Applicable *COPY OF PRESCRIPTION DRUG MONITORING REPORT IN PATIENT TORI: Not Applicable Prescriptions: Naproxen [EC-Naproxen] 500 mg PO Q12HR #20 tablet. Dicyclomine [Bentyl] 20 mg PO QIDACANDBED #30 tab Instructions: Flank Pain, Adult, [id number] Referrals: [facility] [Primary Care Provider] - Forms: ED Department Discharge Sepsis Event Note - Evaluation Sepsis Screening Result: No Definite Risk - Focused Exam Vital Signs: Vital Signs Temp Pulse Resp BP Pulse Ox 10/25/19 10:18 35.8 C L 121 H 18 110/88 95 Date Exam was Performed: 10/25/19 Time Exam was Performed: 13:44 - My Orders Last 24 Hours: My Active Orders 10/25/19 10:22 Sodium Chloride 0.9% [Saline Flush] 10 ml FLUSH ASDIRECTED PRN Sodium Chloride 0.9% [Saline Flush] 2.5 ml FLUSH ASDIRECTED PRN Sodium Chloride 0.9% [Saline Flush] 2.5 ml FLUSH ASDIRECTED PRN Saline Lock Insert [OM.PC] Stat 10/25/19 10:23 Morphine 4 mg IVPUSH Q2H PRN - Assessment/Plan Last 24 Hours: My Active Orders 10/25/19 10:22 Sodium Chloride 0.9% [Saline Flush] 10 ml FLUSH ASDIRECTED PRN Sodium Chloride 0.9% [Saline Flush] 2.5 ml FLUSH ASDIRECTED PRN Sodium Chloride 0.9% [Saline Flush] 2.5 ml FLUSH ASDIRECTED PRN Saline Lock Insert [OM.PC] Stat 10/25/19 10:23 Morphine 4 mg IVPUSH Q2H PRN
[2019-10-25 11:23] LABS: BLOOD UREA NITROGEN,BUN 14 mg/dL (7.0-18.0); CARBON DIOXIDE,CO2 28.5 mmol/L (21.0-32.0); CHLORIDE,CL 102 mmol/L (98-107); GLUCOSE RANDOM 143 mg/dL (74-106); LIPASE 87 U/L (73-393); POTASSIUM,K 5.1 mmol/L (3.5-5.1); SODIUM,NA 139 mmol/L (136-148)
[2019-10-25] MEDS ORDERED: Iopamidol 755 Mg/ML 100 ML Bottle IVPUSH STA (12:03)
--- NOTE | 2019-10-25 12:23 | CT ---
CT abdomen and pelvis Technique: Multiple axial sections were obtained from above the dome of the diaphragm inferiorly through the pubic symphysis. Intravenous contrast was utilized. No oral contrast has been given. Comparison: Prior CT abdomen and pelvis study of 02/18/13. Findings: Visualized lung bases show nothing acute. Liver contains no focal parenchymal abnormality. Gallbladder contains no calcified gallstones. Adrenal glands show no nodule. Pancreas appears within normal limits. Kidneys show symmetric contrast enhancement with no hydronephrosis or mass being seen. Spleen appears normal in size. Aorta shows atherosclerotic calcification which continues into the iliac vessels. No aneurysm is seen. No retroperitoneal adenopathy or mesenteric abnormalities are seen. No pelvic mass or adenopathy is appreciated. Appendix is seen which is normal in size without inflammatory change. No free fluid is seen. Bone window settings were reviewed which shows mild degenerative change within the spine with no acute osseous finding. Impression: 1. Findings as described above. 2. Nothing acute is appreciated on CT study of the abdomen and pelvis. Diagnostic code #2 This report was dictated in MDT
[2019-10-25] MEDS ORDERED: Ketorolac 30 MG/ML SDV IVPUSH ONE (13:22)
[2019-10-25 14:18] VITALS: BP 122/79; PULSE 103
== END 2019-10-25 14:10 | disposition home or self-care (01) ==
LOC: MW.ED 10:06
DX: R10.32 Left lower quadrant pain (principal); E11.9 Type 2 diabetes mellitus without complications; F17.210 Nicotine dependence, cigarettes, uncomplicated; E66.9 Obesity, unspecified; Z79.899 Other long term (current) drug therapy; E78.00 Pure hypercholesterolemia, unspecified; Z79.82 Long term (current) use of aspirin; Z79.4 Long term (current) use of insulin; Z68.31 Body mass index [BMI] 31.0-31.9, adult
CPT/HCPCS: 36415; 74177; 80053; 81001; 83690; 85025; 96361; 96374; 96375; 99284; J1885; J2270; J2405; J7030; Q9967; 99282

== ENCOUNTER 2021-07-12 03:54 | Emergency (ER) | payer OTHER ==
[2021-07-12] MEDS ORDERED: Ondansetron 4 MG/2 ML SDV IVPUSH ONE (04:29)
[2021-07-12] MEDS ORDERED: Sodium Chloride 0.9% 1,000 ML IV STA (04:29)
[2021-07-12] MEDS ORDERED: Pantoprazole 40 MG in Sodium Chloride 0.9% 10 ML IVPUSH SCH ×3 (04:45→08:15)
[2021-07-12 05:12] LABS: BLOOD UREA NITROGEN,BUN 23 mg/dL (7.0-18.0); CARBON DIOXIDE,CO2 27.4 mmol/L (21.0-32.0); CHLORIDE,CL 102 mmol/L (98-107); GLUCOSE RANDOM 115 mg/dL (74-106); LIPASE 78 U/L (73-393); POTASSIUM,K 3.9 mmol/L (3.5-5.1); SODIUM,NA 138 mmol/L (136-148)
[2021-07-12] MEDS ORDERED: Iopamidol 755 MG/ML 500 ML Multipack Bottle IVPUSH STA (06:30)
[2021-07-12] MEDS ORDERED: Magnesium Citrate Solution 296 ML Bottle PO ONE (07:54)
[2021-07-12 08:11] VITALS: BP 111/73; PULSE 102
[2021-07-12] MEDS ORDERED: Pantoprazole 40 MG in Sodium Chloride 0.9% 10 ML IVPUSH STA (08:15)
== END 2021-07-12 08:24 | disposition home or self-care (01) ==
LOC: MW.ED 03:54
DX: R10.12 Left upper quadrant pain (principal); E78.00 Pure hypercholesterolemia, unspecified; M19.90 Unspecified osteoarthritis, unspecified site; E11.9 Type 2 diabetes mellitus without complications; E66.9 Obesity, unspecified; Z68.29 Body mass index [BMI] 29.0-29.9, adult; Z79.82 Long term (current) use of aspirin; Z79.4 Long term (current) use of insulin; Z79.899 Other long term (current) drug therapy
CPT/HCPCS: 36415; 74177; 80053; 81003; 83605; 83690; 85025; 96374; 96375; 99284; A9270; C9113; J2405; J7040; Q9967

== ENCOUNTER 2021-07-17 17:32 | Emergency (ER) | payer OTHER ==
[2021-07-17 17:42] VITALS: BP 128/78; PULSE 111
[2021-07-17] MEDS ORDERED: Sodium Chloride 0.9% 10 ML Syringe FLUSH PRN (17:58)
[2021-07-17] MEDS ORDERED: Lactated Ringers 1,000 ML IV ONE (17:58)
[2021-07-17] MEDS ORDERED: Sodium Chloride 0.9% 2.5 ML Syringe FLUSH PRN (17:58)
[2021-07-17] MEDS ORDERED: Famotidine 20 MG/2 ML SDV IVPUSH ONE (17:59)
[2021-07-17] MEDS ORDERED: Alum Hydro/Mag Hydro/Simeth XS 15 ML, Lidocaine 2% 5 ML PO ONE ×2 (17:59)
[2021-07-17 19:11] LABS: BLOOD UREA NITROGEN,BUN 16 mg/dL (7.0-18.0); CARBON DIOXIDE,CO2 25.8 mmol/L (21.0-32.0); CHLORIDE,CL 105 mmol/L (98-107); GLUCOSE RANDOM 170 mg/dL (74-106); LIPASE 126 U/L (73-393); POTASSIUM,K 4.1 mmol/L (3.5-5.1); SODIUM,NA 141 mmol/L (136-148)
== END 2021-07-17 19:43 | disposition home or self-care (01) ==
LOC: MW.ED 17:32
DX: R10.12 Left upper quadrant pain (principal); I10 Essential (primary) hypertension; E11.9 Type 2 diabetes mellitus without complications; E78.00 Pure hypercholesterolemia, unspecified; E66.9 Obesity, unspecified; Z68.29 Body mass index [BMI] 29.0-29.9, adult; Z79.82 Long term (current) use of aspirin; Z79.84 Long term (current) use of oral hypoglycemic drugs; Z79.899 Other long term (current) drug therapy
CPT/HCPCS: 36415; 80053; 83605; 83690; 85025; 96374; 99284; A9270; J3490; J7120

== ENCOUNTER 2021-07-24 08:23 | Day surgery (SDC) | payer OTHER ==
[2021-07-24] MEDS ORDERED: Midazolam 1 MG/ML 2 ML SDV ONE (08:45)
[2021-07-24] MEDS ORDERED: fentaNYL 100 MCG/2 ML SDV ONE (08:45)
[2021-07-24] MEDS ORDERED: Propofol 200 MG/20 ML SDV ONE ×2 (08:45→08:47)
[2021-07-24] MEDS ORDERED: fentaNYL 50 MCG/ML SDV IVPUSH ONE (09:17)
[2021-07-24] MEDS ORDERED: Ondansetron 4 MG/2 ML SDV IVPUSH ONE (09:19)
[2021-07-24] MEDS: fentaNYL 100 MCG/2 ML SDV IVPUSH ONE ×2 (09:38→09:57)
[2021-07-24] MEDS: fentaNYL 100 MCG/2 ML SDV ONE ×3 (09:43→09:56)
[2021-07-24 11:36] VITALS: BP 118/62; PULSE 102
== END 2021-07-24 11:57 | disposition home or self-care (01) ==
LOC: MW.SDS 08:23
PROVIDERS: ATTEND Surgery
DX: K63.5 Polyp of colon (principal); K62.1 Rectal polyp; K20.90 Esophagitis, unspecified without bleeding; K29.70 Gastritis, unspecified, without bleeding; K21.9 Gastro-esophageal reflux disease without esophagitis; K64.8 Other hemorrhoids; E11.9 Type 2 diabetes mellitus without complications; M17.12 Unilateral primary osteoarthritis, left knee; R63.4 Abnormal weight loss; E66.9 Obesity, unspecified; I10 Essential (primary) hypertension; E78.00 Pure hypercholesterolemia, unspecified; F32.A Depression, unspecified; F17.210 Nicotine dependence, cigarettes, uncomplicated; K31.89 Other diseases of stomach and duodenum; Z79.82 Long term (current) use of aspirin; Z79.899 Other long term (current) drug therapy; Z79.84 Long term (current) use of oral hypoglycemic drugs; Z68.30 Body mass index [BMI] 30.0-30.9, adult; Z98.890 Other specified postprocedural states
CPT/HCPCS: 43239; 45385; 82947; J2250; J2405; J2704; J3010; J7120; 00813

== ENCOUNTER 2021-11-04 20:15 | Emergency (ER) | payer OTHER, BC ==
[2021-11-04] MEDS ORDERED: Lactated Ringers 1,000 ML IV STA ×2 (20:49)
[2021-11-04 22:06] LABS: BLOOD UREA NITROGEN,BUN 17 mg/dL (7.0-18.0); CHLORIDE,CL 96 mmol/L (98-107); GLUCOSE RANDOM 462 mg/dL (74-106); LIPASE 135 U/L (73-393); POTASSIUM,K 4.6 mmol/L (3.5-5.1); SODIUM,NA 131 mmol/L (136-148)
[2021-11-04] MEDS ORDERED: 50% Dextrose in Water 50 ML Syringe IVPUSH PRN (22:35)
[2021-11-04] MEDS ORDERED: Insulin Regular, Human 100 Units/ML 10 ML Vial IVPUSH STA (22:35)
[2021-11-04] MEDS ORDERED: Glucagon,Human Recombinant 1 MG Vial IM PRN (22:35)
[2021-11-05 02:52] VITALS: BP 128/89; PULSE 108
== END 2021-11-05 02:17 | disposition home or self-care (01) ==
LOC: MW.ED 20:15
DX: E11.65 Type 2 diabetes mellitus with hyperglycemia (principal); E78.00 Pure hypercholesterolemia, unspecified; I10 Essential (primary) hypertension; Z79.4 Long term (current) use of insulin; Z79.82 Long term (current) use of aspirin; Z72.0 Tobacco use; Z20.822 Contact with and (suspected) exposure to COVID-19
CPT/HCPCS: 36415; 71045; 80053; 81001; 82009; 82803; 82947; 83605; 83690; 83735; 83880; 84484; 85025; 85610; 87040; 87635; 93005; 96360; 99285; J1815; J7120; 99283; U0002

== ENCOUNTER 2021-11-22 03:51 | Emergency (ER) | payer OTHER, BC ==
[2021-11-22] MEDS ORDERED: traMADol 50 MG Tab PO ONE (04:08)
[2021-11-22] MEDS ORDERED: Cyclobenzaprine 10 MG Tab PO ONE (04:08)
[2021-11-22] MEDS ORDERED: Ketorolac 30 MG/ML SDV IM ONE (04:08)
[2021-11-22 04:45] VITALS: BP 138/84; PULSE 81
== END 2021-11-22 04:59 | disposition home or self-care (01) ==
LOC: MW.ED 03:51
DX: M75.32 Calcific tendinitis of left shoulder (principal); E78.00 Pure hypercholesterolemia, unspecified; I10 Essential (primary) hypertension; E11.9 Type 2 diabetes mellitus without complications; E66.9 Obesity, unspecified; Z68.30 Body mass index [BMI] 30.0-30.9, adult; Z79.899 Other long term (current) drug therapy; Z79.84 Long term (current) use of oral hypoglycemic drugs; Z79.82 Long term (current) use of aspirin; Z79.4 Long term (current) use of insulin
CPT/HCPCS: 73030; 96372; 99283; A9270; J1885

== ENCOUNTER 2022-01-30 14:32 | Emergency (ER) | payer OTHER ==
[2022-01-30 14:53] VITALS: BP 141/99; PULSE 128
[2022-01-30] MEDS ORDERED: Sodium Chloride 0.9% 2.5 ML Syringe FLUSH PRN (15:15)
[2022-01-30] MEDS ORDERED: Sodium Chloride 0.9% 10 ML Syringe FLUSH PRN (15:15)
[2022-01-30] MEDS ORDERED: Sodium Chloride 0.9% 1,000 ML IV ONE (15:15)
[2022-01-30 15:27] LABS: CORONAVIRUS COVID-19 NAA NEGATIVE (NEGATIVE); INFLUENZA A NAA NEGATIVE (NEGATIVE); INFLUENZA B NAA NEGATIVE (NEGATIVE)
[2022-01-30 17:06] LABS: CARBON DIOXIDE,CO2 27.1 mmol/L (21.0-32.0); POTASSIUM,K 4.3 mmol/L (3.5-5.1)
== END 2022-01-30 17:20 | disposition left against medical advice (07) ==
LOC: MW.ED 14:32
DX: R00.0 Tachycardia, unspecified (principal); I10 Essential (primary) hypertension; E11.9 Type 2 diabetes mellitus without complications; B34.9 Viral infection, unspecified; E66.9 Obesity, unspecified; Z68.30 Body mass index [BMI] 30.0-30.9, adult; Z79.899 Other long term (current) drug therapy; Z79.82 Long term (current) use of aspirin; Z79.4 Long term (current) use of insulin; Z79.84 Long term (current) use of oral hypoglycemic drugs; Z20.822 Contact with and (suspected) exposure to COVID-19
CPT/HCPCS: 0240U; 36415; 71045; 80053; 84484; 85025; 85379; 93005; 96360; 99285; J3490; J7030

== ENCOUNTER 2022-01-31 16:52 | Emergency (ER) | payer OTHER | END 2022-01-31 19:27 | disposition left against medical advice (07) | LOC: MW.ED 16:52 | DX: Z53.21 Procedure and treatment not carried out due to patient leaving prior to being seen by health care provider (principal) ==

== ENCOUNTER 2022-02-02 16:19 | Emergency (ER) | payer OTHER ==
[2022-02-02] MEDS ORDERED: Sodium Chloride 0.9% 2.5 ML Syringe FLUSH PRN (17:18)
[2022-02-02] MEDS ORDERED: Sodium Chloride 0.9% 10 ML Syringe FLUSH PRN (17:18)
[2022-02-02] MEDS ORDERED: Ondansetron 4 MG/2 ML SDV IVPUSH ONE (17:20)
[2022-02-02 18:11] LABS: CARBON DIOXIDE,CO2 25.5 mmol/L (21.0-32.0); POTASSIUM,K 3.6 mmol/L (3.5-5.1)
[2022-02-02] MEDS ORDERED: Sodium Chloride 0.9% 1,000 ML IV ONE (18:58)
[2022-02-02] MEDS ORDERED: Iopamidol 755 MG/ML 500 ML Multipack Bottle IVPUSH STA (19:33)
[2022-02-02 21:49] VITALS: BP 130/78; PULSE 118
== END 2022-02-02 22:00 | disposition home or self-care (01) ==
LOC: MW.ED 16:19
DX: R00.0 Tachycardia, unspecified (principal); E78.00 Pure hypercholesterolemia, unspecified; I10 Essential (primary) hypertension; K21.9 Gastro-esophageal reflux disease without esophagitis; E11.9 Type 2 diabetes mellitus without complications; E66.9 Obesity, unspecified; Z68.30 Body mass index [BMI] 30.0-30.9, adult; Z79.82 Long term (current) use of aspirin; Z79.899 Other long term (current) drug therapy; Z79.4 Long term (current) use of insulin; Z20.822 Contact with and (suspected) exposure to COVID-19
CPT/HCPCS: 36415; 71045; 71275; 80053; 80305; 81001; 82550; 83605; 83690; 84443; 84484; 85025; 85610; 87635; 93005; 96361; 96374; 99285; J2405; J3490; J7030; Q9967; 93010; 99284; U0002

== ENCOUNTER 2022-02-12 16:30 | Emergency (ER) | payer OTHER ==
[2022-02-12] MEDS ORDERED: Acetaminophen 325 MG Tab PO ONE (19:11)
[2022-02-12] MEDS ORDERED: Lidocaine 5% 700 MG Patch TOP ONE (19:11)
[2022-02-12] MEDS ORDERED: Cyclobenzaprine 10 MG Tab PO ONE (19:12)
[2022-02-12] MEDS ORDERED: Ibuprofen 400 MG Tab PO ONE (19:13)
[2022-02-12 19:37] VITALS: BP 124/74; PULSE 120
== END 2022-02-12 20:20 | disposition home or self-care (01) ==
LOC: MW.ED 16:30
DX: M79.651 Pain in right thigh (principal); I10 Essential (primary) hypertension; E11.9 Type 2 diabetes mellitus without complications; E66.9 Obesity, unspecified; Z68.30 Body mass index [BMI] 30.0-30.9, adult; Z79.899 Other long term (current) drug therapy; Z79.84 Long term (current) use of oral hypoglycemic drugs; Z79.82 Long term (current) use of aspirin
CPT/HCPCS: 93971; 99283; A9270

== ENCOUNTER 2022-06-24 07:57 | Emergency (ER) | payer OTHER ==
[2022-06-24] MEDS ORDERED: Aspirin 81 MG Tab.Chew PO ONE (08:15)
[2022-06-24] MEDS ORDERED: Heparin Sodium 5,000 Units/ML Vial IVPUSH ONE (08:18)
[2022-06-24] MEDS ORDERED: Tenecteplase 50 MG Kit IV ONE (08:21)
[2022-06-24] MEDS ORDERED: Nitroglycerin/D5W 25 MG/250 ML BOTTLE IV SCH (08:30)
[2022-06-24] MEDS ORDERED: Heparin Sodium/0.45% NaCl 500 ML IV SCH (08:30)
[2022-06-24] MEDS: Nitroglycerin 0.4 MG Tab.SL SL PRN ×3 (08:31→08:49)
[2022-06-24] MEDS ORDERED: Ondansetron 4 MG/2 ML SDV IVPUSH ONE (08:38)
[2022-06-24] MEDS ORDERED: Ondansetron 4 MG/2 ML SDV ONE (08:40)
[2022-06-24 08:53] LABS: CARBON DIOXIDE,CO2 23.1 mmol/L (21.0-32.0); POTASSIUM,K 4.2 mmol/L (3.5-5.1)
[2022-06-24] MEDS ORDERED: Clopidogrel 75 MG Tab PO ONE (09:04)
[2022-06-24 09:41] VITALS: BP 131/80; PULSE 95
== END 2022-06-24 09:42 ==
LOC: MW.ED 07:57
DX: I21.3 ST elevation (STEMI) myocardial infarction of unspecified site (principal); E11.9 Type 2 diabetes mellitus without complications; E78.00 Pure hypercholesterolemia, unspecified; I10 Essential (primary) hypertension; F17.210 Nicotine dependence, cigarettes, uncomplicated; E66.9 Obesity, unspecified; Z68.30 Body mass index [BMI] 30.0-30.9, adult; Z79.84 Long term (current) use of oral hypoglycemic drugs; Z79.82 Long term (current) use of aspirin; Z79.899 Other long term (current) drug therapy; Z20.822 Contact with and (suspected) exposure to COVID-19
CPT/HCPCS: 36415; 71045; 80053; 84484; 85025; 85610; 87635; 92977; 93005; 96365; 96368; 96375; 96376; 99285; A9270; J1644; J2405; J3101; J3490; U0002

== ENCOUNTER 2022-09-25 01:59 | Emergency (ER) | payer OTHER ==
[2022-09-25] MEDS ORDERED: Aspirin 81 MG Tab.Chew PO ONE (02:13)
[2022-09-25 02:21] LABS: BASOPHILS PERCENT AUTO 0.3 % (0.0-1.5); EOSINOPHILS ABSOLUTE AUTO 0.4 K/uL (0.0-0.7); EOSINOPHILS PERCENT AUTO 3.3 % (0.0-7.0); HEMOGLOBIN 16.4 g/dL (13.0-17.0); LYMPHOCYTES ABSOLUTE AUTO 2.2 K/uL (0.6-2.4); MEAN CORPUSCULAR HEMOGLOBIN 29.8 pg (27.0-32.0); MEAN CORPUSCULAR HGB CONC 34.9 g/dL (31.0-37.0); MEAN CORPUSCULAR VOLUME 85.5 fL (80.0-98.0); MONOCYTES PERCENT AUTO 9.4 % (0.0-15.0); NEUTROPHILS ABSOLUTE AUTO 6.9 K/uL (1.4-5.7); NRBC ABSOLUTE 0 K/uL; PLATELET COUNT,PLT 208 K/uL (150-400); WHITE BLOOD CELL COUNT,WBC 10.47 K/uL (4.0-11.0)
[2022-09-25 02:47] LABS: ALBUMIN 3.8 g/dL (3.4-5.0); BILIRUBIN TOTAL 0.8 mg/dL (0.2-1.0); CALCIUM 9.5 mg/dL (8.5-10.1); CARBON DIOXIDE,CO2 24.4 mmol/L (21.0-32.0); CREATININE 1.1 mg/dL (0.8-1.3); EST CRCL DRUG DOSING (CG) 67.36 mL/min; POTASSIUM,K 3.5 mmol/L (3.5-5.1); PROTEIN TOTAL,TP 7.7 g/dL (6.4-8.2)
[2022-09-25] MEDS ORDERED: Glucagon,Human Recombinant 1 MG Vial IM PRN (03:42)
[2022-09-25] MEDS ORDERED: 50% Dextrose in Water 50 ML Syringe IVPUSH PRN (03:42)
[2022-09-25] MEDS ORDERED: Insulin Regular, Human 100 Units/ML 10 ML Vial IVPUSH ONE (03:42)
[2022-09-25] MEDS ORDERED: Lactated Ringers 1,000 ML IV SCH ×2 (03:45)
[2022-09-25] MEDS ORDERED: Heparin Sodium/0.45% NaCl 500 ML IV SCH (05:15)
[2022-09-25] MEDS ORDERED: Heparin Sodium 5,000 Units/ML Vial IVPUSH ONE (05:22)
[2022-09-25 06:08] VITALS: BP 140/93; PULSE 90
== END 2022-09-25 06:25 ==
LOC: MW.ED 01:59
DX: I21.4 Non-ST elevation (NSTEMI) myocardial infarction (principal); E78.00 Pure hypercholesterolemia, unspecified; I10 Essential (primary) hypertension; E11.9 Type 2 diabetes mellitus without complications; E66.9 Obesity, unspecified; Z68.32 Body mass index [BMI] 32.0-32.9, adult; Z79.84 Long term (current) use of oral hypoglycemic drugs; Z79.82 Long term (current) use of aspirin; Z79.4 Long term (current) use of insulin
CPT/HCPCS: 36415; 71045; 80053; 82947; 84484; 85025; 85730; 93005; 96361; 96365; 96376; 99291; J1644; J1815; J7120; 93010

== ENCOUNTER 2022-10-18 23:22 | Observation (INO) | payer OTHER ==
[2022-10-18] MEDS ORDERED: Nitroglycerin 0.4 MG Tab.SL SL PRN (23:28)
[2022-10-18] MEDS ORDERED: Sodium Chloride 0.9% 2.5 ML Syringe FLUSH PRN (23:28)
[2022-10-18] MEDS ORDERED: Aspirin 81 MG Tab.Chew PO ONE (23:28)
[2022-10-18] MEDS ORDERED: Sodium Chloride 0.9% 10 ML Syringe FLUSH PRN (23:28)
[2022-10-18] MEDS ORDERED: Prochlorperazine 10 MG/2 ML SDV IVPUSH ONE (23:28)
[2022-10-18] MEDS ORDERED: Prochlorperazine 10 MG/2 ML SDV ONE (23:29)
[2022-10-18] MEDS ORDERED: Aspirin 81 MG Tab.Chew ONE (23:29)
[2022-10-18] MEDS ORDERED: Nitroglycerin 0.4 MG Tab.SL ONE (23:29)
[2022-10-19 00:03] LABS: CARBON DIOXIDE,CO2 23.9 mmol/L (21.0-32.0); POTASSIUM,K 4.8 mmol/L (3.5-5.1)
[2022-10-19] MEDS ORDERED: Prochlorperazine 10 MG/2 ML SDV IVPUSH ONE (00:43)
[2022-10-19] MEDS ORDERED: Sodium Chloride 0.9% 1,000 ML IV ONE (00:43)
[2022-10-19] MEDS ORDERED: Insulin Regular, Human 100 Units/ML 10 ML Vial SUBCUT ONE (00:44)
[2022-10-19] MEDS ORDERED: 50% Dextrose in Water 50 ML Syringe IVPUSH PRN (00:44)
[2022-10-19] MEDS ORDERED: Propranolol 20 MG Tab PO ONE (00:44)
[2022-10-19] MEDS ORDERED: Glucagon,Human Recombinant 1 MG Vial IM PRN (00:44)
[2022-10-19] MEDS ORDERED: Acetaminophen 325 MG Tab PO PRN (03:24)
[2022-10-19] MEDS ORDERED: Morphine 2 MG/ML SYRINGE IVPUSH PRN (03:24)
[2022-10-19] MEDS ORDERED: Ondansetron 4 MG/2 ML SDV IVPUSH PRN (03:24)
[2022-10-19] MEDS ORDERED: Ondansetron 4 MG Tab.DIS PO PRN (03:24)
[2022-10-19] MEDS ORDERED: 50% Dextrose in Water 50 ML Syringe IVPUSH ONE (03:24)
[2022-10-19] MEDS ORDERED: Cyclobenzaprine 10 MG Tab PO PRN (03:33)
[2022-10-19] MEDS: Sodium Chloride 0.9% 1,000 ML IV SCH ×2 (03:55→09:56)
[2022-10-19 06:38] LABS: CARBON DIOXIDE,CO2 27.4 mmol/L (21.0-32.0)
[2022-10-19 06:42] LABS: HEMOGLOBIN A1C 11.4 %
[2022-10-19] MEDS: Insulin Aspart 100 Units/ML 3 ML Pen SUBCUT SCH ×2 (07:58→11:48)
[2022-10-19 08:40] VITALS: BP 147/80; PULSE 109
[2022-10-19] MEDS ORDERED: Losartan 50 MG Tab PO SCH (09:00)
[2022-10-19] MEDS ORDERED: atorvaSTATin 40 MG Tab PO SCH (09:00)
[2022-10-19] MEDS ORDERED: Enoxaparin 40 MG/0.4 ML Syringe SUBCUT SCH (09:00)
[2022-10-19] MEDS ORDERED: Insulin Glargine,Hum.Rec.Anlog 100 UNIT/ML 3 ML Pen SUBCUT SCH (20:00)
[2022-10-20] MEDS ORDERED: Aspirin 81 MG Tab.Chew PO SCH (09:00)
== END 2022-10-19 12:15 | disposition home or self-care (01) ==
LOC: MW.ED 23:22 → MW.MS 10-19 02:24
PROVIDERS: ADMIT Hospitalist; ATTEND Hospitalist
DX: E66.9 Obesity, unspecified (principal); R65.10 Systemic inflammatory response syndrome (SIRS) of non-infectious origin without acute organ dysfunction; I10 Essential (primary) hypertension; E87.29 Other acidosis; D72.9 Disorder of white blood cells, unspecified; D75.839 Thrombocytosis, unspecified; N17.9 Acute kidney failure, unspecified; E11.65 Type 2 diabetes mellitus with hyperglycemia; F41.9 Anxiety disorder, unspecified; F32.A Depression, unspecified; F43.10 Post-traumatic stress disorder, unspecified; E78.00 Pure hypercholesterolemia, unspecified; I25.708 Atherosclerosis of coronary artery bypass graft(s), unspecified, with other forms of angina pectoris; Z79.4 Long term (current) use of insulin; Z79.84 Long term (current) use of oral hypoglycemic drugs; Z68.30 Body mass index [BMI] 30.0-30.9, adult; Z79.899 Other long term (current) drug therapy
CPT/HCPCS: 36415; 71045; 80048; 80053; 81001; 82803; 82947; 83036; 83605; 83735; 83880; 84100; 84484; 85025; 85610; 93005; 96361; 96374; 96375; 96376; 99285; A9270; G0378; J0780; J1650; J1815; J2405; J3490; J7030; 93010; 99235

== ENCOUNTER 2023-07-13 08:42 | Emergency (ER) | payer OTHER ==
[2023-07-13 09:35] VITALS: BP 119/69; PULSE 98
[2023-07-13 10:23] LABS: CORONAVIRUS COVID-19 NAA NEGATIVE (NEGATIVE); INFLUENZA A NAA NEGATIVE (NEGATIVE); INFLUENZA B NAA NEGATIVE (NEGATIVE)
== END 2023-07-13 10:48 | disposition home or self-care (01) ==
LOC: MW.ED 08:42
DX: H66.001 Acute suppurative otitis media without spontaneous rupture of ear drum, right ear (principal); K21.9 Gastro-esophageal reflux disease without esophagitis; E11.9 Type 2 diabetes mellitus without complications; E66.9 Obesity, unspecified; I10 Essential (primary) hypertension; E78.00 Pure hypercholesterolemia, unspecified; I25.2 Old myocardial infarction; Z95.1 Presence of aortocoronary bypass graft; Z79.82 Long term (current) use of aspirin; Z79.4 Long term (current) use of insulin; Z79.84 Long term (current) use of oral hypoglycemic drugs; Z79.899 Other long term (current) drug therapy; Z68.28 Body mass index [BMI] 28.0-28.9, adult
CPT/HCPCS: 0240U; 87651; 99283

== ENCOUNTER 2023-11-25 06:24 | Emergency (ER) | payer OTHER ==
[2023-11-25 06:36] VITALS: BP 131/73; PULSE 103
[2023-11-25] MEDS: Sulfamethoxazole/Trimethoprim 800-160 MG Tab PO ONE (06:49)
== END 2023-11-25 06:55 | disposition home or self-care (01) ==
LOC: MW.ED 06:24
DX: L03.012 Cellulitis of left finger (principal); I25.2 Old myocardial infarction; I10 Essential (primary) hypertension; E78.00 Pure hypercholesterolemia, unspecified; E11.9 Type 2 diabetes mellitus without complications; E66.9 Obesity, unspecified; M19.90 Unspecified osteoarthritis, unspecified site; Z95.1 Presence of aortocoronary bypass graft; Z79.4 Long term (current) use of insulin; Z79.82 Long term (current) use of aspirin; Z79.84 Long term (current) use of oral hypoglycemic drugs; Z79.899 Other long term (current) drug therapy; Z75.8 Other problems related to medical facilities and other health care
CPT/HCPCS: 99283; A9270

== ENCOUNTER 2024-10-02 19:17 | Emergency (ER) | payer OTHER | END 2024-10-02 22:08 | disposition left against medical advice (07) | LOC: MW.ED 19:17 | DX: Z53.21 Procedure and treatment not carried out due to patient leaving prior to being seen by health care provider (principal) ==